=== PATIENT | male | born 1935 | race Caucasian/White ===

== ENCOUNTER 2018-03-16 17:03 | Inpatient (IN) ==
--- NOTE | 2018-03-16 17:24 | Emergency Department Note ---
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 Today he was feeling worse than usual and was having more difficulty ambulating. He is weak with ambulating as a baseline and often requires assistance and/or a walker device to get around secondary to his normal pressure hydrocephalus. He has not had any vomiting or diarrhea. He has had a good appetite and ate twice today already. He has had an occasional cough not real prominent and nonproductive. He has been seen to have some rhinorrhea. He is a compromised historian secondary to his dementia but does answer questions. He denies headache, chest pain, abdominal pain, dysuria. His family is not aware of him ever having a UTI. He did get a flu vaccination prior to this season. He does not smoke tobacco. He is accompanied by 3 other family members. They are not aware that he has been around anyone ill recently. Pt Subjective Complaint: fever, malaise, weakness Onset (ago): day(s) Maximum Temperature Reported: 100.9 F Temperature Source: oral - Related Data Home Medications Medication Instructions Recorded Confirmed Aspirin 81 mg PO DAILY 08/30/15 03/16/18 Latanoprost [Xalatan] 1 drop LEFT EYE HS 08/30/15 03/16/18 Donepezil HCl [Aricept] 10 mg PO DAILY 03/16/18 03/16/18 Memantine [Namenda] 10 mg PO BID 03/16/18 03/16/18 Allergies Allergy/AdvReac Type Severity Reaction Status Date / Time Penicillins Allergy Hives Verified 03/19/15 16:10 Constitutional: Reports: fever, chills Eyes: Denies: eye discharge ENT ED: Denies: throat pain Cardiovascular: Denies: chest pain Respiratory: Reports: cough, dyspnea. 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 Absent: conjunctival injection - ENT ENT exam: normal exam, normal oropharynx, mucous membranes moist - Neck Neck exam: Present: normal inspection - Chest Chest inspection: Present: symmetric chest wall rise - Respiratory Respiratory exam: Present: normal lung sounds bilaterally. Absent: respiratory distress, wheezes, stridor, accessory muscle use, prolonged expiratory phase - Cardiovascular Cardiovascular exam: Present: regular rate, normal rhythm, tachycardia - Abdominal Exam Abdominal exam: Present: soft, Non-Tender, normal bowel sounds. Absent: organomegaly - Extremities Exam Extremities exam: Present: normal inspection - Expanded Lower Extremity Exam Gait: other (Brought in by wheelchair he has difficulty walking when he is feeling well secondary to normal pressure hydrocephalus) - Back Exam Back exam: Present: normal inspection. Absent: CVA tenderness (R), CVA tenderness (L) - Neurological Exam Neurological exam: Present: alert, CN II-XII intact, other (He is weaker in the lower extremities than the upper he has strong grasp bilaterally he can barely lift either leg off the bed and has a tremor in both legs, right more than the left) - Psychiatric Psychiatric exam: Present: normal affect - Skin Skin exam: Present: warm, dry Course Course Narrative: He was hydrated with a liter of normal saline, he was given an antipyretic and antibiotics were initiated on repeat exam he appears comfortable and hemodynamically stable his heart rate came down to 95 bpm he was saturating 92% on room air Vital Signs Temperature 100.2 F H 01/30/19 17:13 Pulse Rate 121 03/16/18 17:13 Respiratory Rate 16 03/16/18 17:13 Blood Pressure 137/86 03/16/18 17:13 O2 Sat by Pulse Oximetry 90 03/16/18 17:13 Temperature 100.2 F H 03/16/18 17:13 Pulse Rate 121 03/16/18 17:13 Respiratory Rate 16 03/16/18 17:13 Blood Pressure 137/86 03/16/18 17:13 O2 Sat by Pulse Oximetry 90 03/16/18 17:13 Oxygen Delivery Oxygen Delivery Room Air Fever - MDM Narrative Medical decision making narrative: 82-year-old male with lingular pneumonia, borderline hypoxia, he is weak as a baseline and weaker with a fever and illness, it does not appear he is stable enough for the family to care for at home he would benefit from admission IV hydration and closer monitoring him at this point in time I do not believe he is septic or in septic shock - Differential Diagnosis Likely: community acquired pneumonia, pyelonephritis, influenza - Medical Records Medical records reviewed: Yes I reviewed the patient's medical records. - Lab Data Lab results reviewed: Yes I reviewed the patient's lab results. Lab results narrative: White blood cell count is normal, chemistry panel is unremarkable, liver panel unremarkable, lactic acid normal - Radiology Data Radiology results reviewed: Yes I reviewed the patient's radiology results. Density in the lingular area consistent with atelectasis versus pneumonia - EKG Data EKG attestation: Yes I reviewed and interpreted this EKG. EKG shows normal: sinus rhythm Rate: tachycardia Burke/QRS: normal Interpretation: nonspecific ST-T wave changes (Poor R-wave progression, consistent with anterior injury of indeterminate age, nursing change from previous study on 12/08/15) Critical Care Time Critical Care Time: No
[2018-03-16] MEDS ORDERED: 0.9 % Sodium Chloride 1,000 ML IVC ONE (17:33)
[2018-03-16] MEDS ORDERED: Acetaminophen 325 MG TABLET PO ONE (17:33)
[2018-03-16 17:52] LABS: Basophils % 0.5 %; Eosinophils # 0.1 K/mcL (0.0-0.6); Eosinophils % 0.8 %; Hemoglobin 16.6 g/dL (12.9-16.9); Immature Granulocytes % 0.3 % (0-4); Lymphocytes # 0.5 K/mcL (0.6-4.6); Lymphocytes % 7.1 %; Mean Corpuscular HGB Conc 34.6 g/dL (31.6-35.5); Mean Corpuscular Hemoglobin 30.3 pg (28.0-33.3); Mean Corpuscular Volume 87.8 fL (83.0-100.0); Mean Platelet Volume 8.4 fL (9.4-12.4); Monocytes # 0.5 K/mcL (0.0-1.3); Monocytes % 7.4 %; Neutrophils # 5.3 K/mcL (1.6-8.9); Platelet Count 154 K/mcL (140-400); Red Blood Count 5.47 M/mcL (4.19-5.50); Red Cell Distribution Width 12.7 % (11.5-14.5); Segmented Neutrophils % 83.9 %
[2018-03-16 18:00] LABS: INR 1.1; Prothrombin Time 12.8 Seconds (9.4-12.1)
[2018-03-16 18:03] LABS: Activated Partial Thrombo Time 33.3 Seconds (26.0-36.0)
[2018-03-16 18:11] LABS: Troponin I < 0.03 ng/mL (< 0.04)
[2018-03-16 18:12] LABS: Alanine Aminotransferase 23 Units/L (7-52); Albumin/Globulin Ratio 1.4 (1.1-2.2); Alkaline Phosphatase 86 Units/L (34-104); Aspartate Amino Transferase 17 Units/L (13-39); BUN/Creatinine Ratio 17 (6-26); Bilirubin,Direct 0.2 mg/dL (0.0-0.2); Bilirubin,Indirect 0.9 mg/dL (0.0-1.2); Bilirubin,Total 1.1 mg/dL (0.3-1.0); Blood Urea Nitrogen 17 mg/dL (8-23); Carbon Dioxide 24 mEq/L (23-29); Chloride 104 mEq/L (98-107); Globulin 2.9 g/dL (2.4-3.5); Glucose 116 mg/dL (70-105); Magnesium 1.9 mg/dL (1.6-2.6); Osmolality,Calculated 285 (280-300); Phosphorous 3.1 mg/dL (2.7-4.5); Potassium 3.9 mEq/L (3.5-5.1); Sodium 136 mEq/L (136-145); Total Protein 6.9 g/dL (6.4-8.9); eGFR For Non-African Americans > 60 (> 60)
[2018-03-16 18:12] LABS: ABG Base Excess 1 mEq/L (-2 to 3); ABG HCO3 24 mEq/L (21-27); ABG Oxygen Saturation 92 % (95-98); ABG PCO2 35 mmHg (35-45); ABG PH 7.45 pH Units (7.32-7.45); ABG PO2 61 mmHg (85-104); ABG TCO2 25 mEq/L (20-26)
[2018-03-16 18:40] LABS: Bilirubin,Urine Negative (Negative); Blood,Urine Negative (Negative); Clarity,Urine Clear (Clear); Color,Urine Yellow (Yellow); Glucose,Urine (UA) Normal (Normal); Ketones,Urine Trace mg/dL (Negative); Leukocyte Esterase,Urine Negative (Negative); Nitrite,Urine Negative (Negative); PH,Urine 7.5 pH Units (5.0-8.0); Protein,Urine Negative (Neg-Trace); Specific Gravity,Urine 1.015 (1.010-1.025); Urobilinogen,Urine Normal (Normal)
[2018-03-16] MEDS ORDERED: Levofloxacin 500 MG/100 ML 500 MG/100 ML BAG IVPB SCH (20:00)
[2018-03-16] MEDS ORDERED: 0.9 % Sodium Chloride 1,000 ML IVC SCH (20:00)
--- NOTE | 2018-03-16 22:42 | Internal Med History&Physical ---
Date of Encounter: 03/17/18 Time of Encounter: 22:38 Assessment and Plan (1) Lingular pneumonia Current visit: Yes Status: Acute Patient has a history of decline in his mental status, decrease in ADLs, inability to walk all happening suddenly today. Documented fever 101 at home. Chest x-ray consistent with left lingular pneumonia. Even though his lung findings on auscultation are clear, no leukocytosis he could indeed have pneumonia with other related symptoms. He has been cultured of blood, Levaquin has been started as well as IV fluids. His family thinks he looks better at this point. Will continue current treatment and follow-up x-ray will be done. (2) Unable to walk Current visit: Yes Status: Acute Today he is unable to walk. It took 3 people to get him in to the bathroom as well as get him to the car. 2 of us could not get him into standing position even bear weight. This is a very different change from his baseline of using a walker and his assisting standby. This may be related to his infection. Doubt that he has had a CVA. Doubt this related to a malfunctioning shunt such as sudden onset. He may need physical therapy. He may need neurology consultation. There is no way he can be handled at home. (3) Normal pressure hydrocephalus Current visit: Yes Status: Chronic Chronic no pressure hydrocephalus. The last couple of times his shunt has not needed adjustment. He does have cognitive changes, urinary incontinence, as well as gait abnormality from this. His specialist is in [place]. I do not think we need further intervention right now. (4) S/P DESIZING MACHINE BACK TENDER shunt Current visit: Yes Status: Chronic Chronic shunt for normal pressure hydrocephalus. I doubt that shunt is related to his son fever and inability to walk. It may need to be reevaluated though. (5) Physical deconditioning Current visit: Yes Status: Acute Generalized weakness related to the above. He cannot be managed at home even with 2 people. He might need physical therapy prior to going home. (6) DVT prophylaxis Current visit: Yes Status: Acute He has a risk for DVT because of his increased sedentary status. We will start [facility] Internal Medicine - H&P: HPI Chief complaint: Family reports he has had a cough and extreme weakness and fever today Admitted From: Emergency Dept Plans for Post Hospital Care: Home History of present illness: Mr. Borges is a 82 year old male with known history of normal pressure hydrocephalus, cognitive impairment, chronic gait abnormality was his usual stable self until this morning. His states "he seemed dull" this morning. He had increased trouble with walking, "like he forgot how to walk or even get up out of his recliner". He needed added assistance from his today. However starting at 2 PM he could not get up by himself. It took 3 people to get him to the bathroom. Extremities were shaky, not able to straighten his legs cannot bear weight on his legs. It took 3 people to get him into the car to come here. His found have a fever of 101 today he has had cold symptoms for the past few days which his thought was getting better until the day. Continues to have a cough and runny nose. Because of his NPH he does have difficulties with walking, but typically walks with a walker with minimal assistance but has difficulties with spatial relationships difficult to get in and out of a chair and make turned etc. However today he simply could not walk, could not get out of a chair and was very shaky and weak. When I spoke to them via phone with that history of fever and inability to walk and having a cough I recommended that he come to the emergency room. There his workup was fairly nonfocal except for possible lingular pneumonia on chest x-ray as read by radiology. His family thinks that he is perked up and has better color since he has had IV fluids. Past Med Surg Social Fam HX - Past Medical History Medical history: arthritis, dementia (Likely from NPH), glaucoma, hypertension (Not requiring medication any longer), thyroid disease, TIA Additional medical history: Normal pressure hydrocephalus and has a shunt Psychiatric history: no psych history - Past Surgical History Surgical History: tonsilectomy, other Additional surgical history: Cerebral Shunt - Social History Smoking Status: Never smoker Smokeless Tobacco Status: No Alcohol use: none Drug use: none Occupational status: retired (Previous [employer]) Current living situation: With Family Activity Level: Uses cane/walker Recent Out of Country Travel Within the Last 8 Weeks: No Exposure or Possible Exposure to Illness During Travel: No - Family History Father Living Status: Age at : 56 Cause of : Heart disease Mother Living Status: Still Living Hx Family Cardiac Disorders: Yes (Heart disease but still alive at 100) Internal Medicine - H&P: Meds Aspirin 81 mg PO HS 08/30/15 [History] Latanoprost [Xalatan] 1 drop LEFT EYE HS 08/30/15 [History] Donepezil HCl [Aricept] 10 mg PO HS 03/16/18 [History] Memantine [Namenda] 10 mg PO BID 03/16/18 [History] Allergy/AdvReac Type Severity Reaction Status Date / Time Penicillins Allergy Hives Verified 03/19/15 16:10 ROS unobtainable: due to mental status Review of systems: Review of systems is basically done by the and daughter as patient is not reliable for this - Constitutional Constitutional: fatigue, fever(s) (Fever 101 at home today), lethargy, weakness, no anorexia, no chills - EENT Eyes: no change in vision Nose, mouth and throat: no mouth pain, no sinus pain, no sore throat - Cardiovascular Cardiovascular ROS IM: no chest pain, no dyspnea, no dyspnea on exertion, no lightheadedness, no syncope - Respiratory Respiratory: cough (Patient has had a dry cough), chest congestion, no dyspnea, no hemoptysis, no wheezing - Gastrointestinal Gastrointestinal: no abdominal pain, no constipation, no diarrhea, no loose stools, no nausea, no vomiting - Genitourinary Genitourinary ROS male: urinary incontinence (Chronically has urinary incontinence, this is been a bit worse the past few days), no dysuria, no hematuria - Musculoskeletal Musculoskeletal ROS IM: muscle weakness (He is unable to bear weight or ambulate with his walker as he did previously ), no joint swelling, no neck pain - Integumentary Integumentary IM: no erythema, no rash - Neurological Neurological ROS: confusion (He seemed to have increasing confusion the past few days. In fact last night he was looking out the window and was waving at somebody, his found out that it was his own reflection.), weakness, other visual disturbances (Sometimes he has had some hallucinations seeing things that were not present) - Constitutional Vitals: Temp Pulse Resp BP Pulse Ox 99.4 F 102 17 131/69 96 03/16/18 21:16 03/16/18 21:16 03/16/18 21:16 03/16/18 21:16 01/30/19 21:16 General appearance: Present: no acute distress. Absent: A&O X 3, answers questions appropriately Exam: He knows my name. He could not tell me where we were. However he knew he had been here for only about 4 hours. - Head Head exam: Present: atraumatic (Right parietal shunt palpable) - Eye Eye exam: Present: EOMI - ENT ENT exam: Present: mucous membranes moist, normal oropharynx (Edentulous.), TM's normal bilaterally - Neck Neck exam general surgery: Present: full ROM. Absent: lymphadenopathy, tenderness, nuchal rigidity, thyromegaly - Respiratory Respiratory exam: Present: CTAB. Absent: respiratory distress - Cardiovascular Cardiovascular exam: Present: RRR, +S1, +S2 - GI/Abdominal GI/Abdominal exam: Present: soft, no peritoneal signs. Absent: guarding, mass, tenderness - Extremities Exam Extremities exam: Present: warm. Absent: calf tenderness, pedal edema, tenderness Additional comments: Both feet are warm, the right tends to be more red than the left. Dorsalis pedis pulses are good. - Neurological Exam Neurological exam: Present: alert. Absent: normal gait, oriented X3 Additional comments: Sometimes he has difficulties following command. In bed he was able to wiggle his toes and bend his knees. However he was unable to walk at home and in the ER. He is difficulties with multiple directions, asking him to sit up in bed was not understood by him and he was not sure what to do. To this try to get him into standing position from the bed, it was impossible for him to bear weight on his lower extremities, had severe shaking and he leaned to one side. We could not continue to stand to even pivot to get into a chair - Skin Skin exam: Absent: rash Internal Med - H&P Results - Labs CBC & Chem 7: 03/17/18 05:50 03/17/18 05:50 Labs: Short CBC 03/16/18 Range/Units 17:45 WBC 6.3 (4.3-11.1) K/mcL Hgb 16.6 (12.9-16.9) g/dL Hct 48.0 (37.5-50.1) % Plt Count 154 (140-400) K/mcL Neutrophils # 5.3 (1.6-8.9) K/mcL BMP 03/16/18 17:45 Sodium 136 Potassium 3.9 Chloride 104 Carbon Dioxide 24 BUN 17 Creatinine 1.03 Glucose 116 H Calcium 9.0 Cardiac Enzymes 03/16/18 Range/Units 17:45 Troponin I < 0.03 (< 0.04) ng/mL Liver Function 03/16/18 Range/Units 17:45 Total Bilirubin 1.1 H (0.3-1.0) mg/dL Direct Bilirubin 0.2 (0.0-0.2) mg/dL AST 17 (13-39) Units/L ALT 23 (7-52) Units/L Alkaline Phosphatase 86 (34-104) Units/L Albumin 4.0 (3.5-5.7) g/dL Urine 03/16/18 Range/Units 18:35 Urine Color Yellow (Yellow) Urine Clarity Clear (Clear) Urine pH 7.5 (5.0-8.0) pH Units Ur Specific [place] 1.015 (1.010-1.025) Urine Protein Negative (Neg-Trace) mg/dL Urine Glucose (UA) Normal (Normal) mg/dL Labs have been reviewed and fairly nonfocal. - ABG Interpretation ABG results: 03/16/18 17:53 ABG pH 7.45 ABG pCO2 35 ABG pO2 61 L ABG HCO3 24 ABG Total CO2 25 ABG O2 Saturation 92 L ABG Base Excess 1 - EKG Data Prior EKG available for review: no - Impressions ITS Impressions Chest X-Ray 03/16/18 17:51 IMPRESSION: Cardiomegaly is identified, with crowding of the interstitial markings related to low lung volumes. There does appear to be a lingular they infiltrate which could represent atelectasis or pneumonia. D/ / Todd Stringer MD / Todd Stringer MD Interpreting Provider: Todd Stringer MD - Diagnostic Studies Chest x-ray Additional comments: Chest x-ray was read by radiologist showing left lingular infiltrate consistent with pneumonia
[2018-03-16] MEDS: Aspirin 81 MG TAB.CHEW PO SCH (23:32)
[2018-03-16] MEDS: Latanoprost 2.5 ML BOTTLE LEFT EYE SCH (23:32)
[2018-03-17] MEDS: 0.9 % Sodium Chloride 1,000 ML IVC SCH ×4 (04:10→22:40)
[2018-03-17] MEDS: *HR* Enoxaparin 40 MG/0.4 ML SYRINGE SQ SCH (05:08)
[2018-03-17 06:36] LABS: BUN/Creatinine Ratio 14 (6-26); Basophils % 0.4 %; Blood Urea Nitrogen 12 mg/dL (8-23); Calcium 8.5 mg/dL (8.6-10.3); Carbon Dioxide 26 mEq/L (23-29); Chloride 106 mEq/L (98-107); Eosinophils % 0.4 %; Glucose 110 mg/dL (70-105); Hematocrit 44.6 % (37.5-50.1); Hemoglobin 15.2 g/dL (12.9-16.9); Immature Granulocytes % 0.2 % (0-4); Lymphocytes # 0.7 K/mcL (0.6-4.6); Lymphocytes % 14.6 %; Mean Corpuscular HGB Conc 34.1 g/dL (31.6-35.5); Mean Corpuscular Hemoglobin 30.5 pg (28.0-33.3); Mean Corpuscular Volume 89.6 fL (83.0-100.0); Mean Platelet Volume 8.7 fL (9.4-12.4); Monocytes # 0.6 K/mcL (0.0-1.3); Monocytes % 12.4 %; Neutrophils # 3.2 K/mcL (1.6-8.9); Osmolality,Calculated 284 (280-300); Platelet Count 130 K/mcL (140-400); Red Blood Count 4.98 M/mcL (4.19-5.50); Red Cell Distribution Width 12.8 % (11.5-14.5); Sodium 137 mEq/L (136-145); eGFR For Non-African Americans > 60 (> 60)
[2018-03-17] MEDS ORDERED: Aspirin 81 MG TAB.CHEW PO SCH (09:00)
--- NOTE | 2018-03-17 11:09 | Internal Med Progress Note ---
Date of Encounter: 03/18/18 Time of Encounter: 11:09 - Assessment and plan (1) Lingular pneumonia Current Visit: Yes Status: Acute Assessment and plan: Fever, cough and chest x-ray consistent with lingular pneumonia. He is on Le vaquin. Pulmonary-rincon she seems to be doing well good saturations and no respiratory distress. Continue the antibiotics. (2) Unable to walk Current Visit: Yes Status: Acute Assessment and plan: He cannot bear weight on lower extremities, even with 2 person assistance he cannot stand. This may be due to his infection or it may be due to NPH. He may need to be evaluated for adjustment of his shunt. (3) Normal pressure hydrocephalus Current Visit: Yes Status: Chronic Assessment and plan: Chronically has NPH and shunt. His neurosurgeon is Dr. Spencer in [place]. He may need to be reevaluated by him. (4) S/P FARM EQUIPMENT SERVICE TECHNICIAN shunt Current Visit: Yes Status: Chronic (5) Physical deconditioning Current Visit: Yes Status: Acute Assessment and plan: I like for him to be evaluated by PT and OT. The nursing staff cannot get him to the bedside chair. (6) DVT prophylaxis Current Visit: Yes Status: Acute - Subjective Interval history: Patient denies any acute complaints, but is not a good historian. Family and clinical staff states that he is not able to stand, still not acting at his usual baseline. He had low-grade fever through the night of 100.2 - Constitutional Vitals: Temp Pulse Resp BP Pulse Ox 100.2 F H 87 18 161/79 94 03/17/18 07:30 03/17/18 07:30 03/17/18 07:30 03/17/18 07:30 03/17/18 07:30 General appearance: Present: no acute distress. Absent: A&O X 3, answers questions appropriately Exam: Smiling and pleasant, not a good historian, difficult for him to follow directions. - Respiratory Respiratory exam: Present: CTAB. Absent: respiratory distress, wheezes - Cardiovascular Cardiovascular exam: Present: RRR, +S1, +S2 - GI/Abdominal GI/Abdominal exam: Present: soft. Absent: tenderness - Extremities Exam Extremities exam: Absent: calf tenderness, pedal edema, tenderness - Neurological Exam Neurological exam: Absent: oriented X3 Additional comments: He is not able to be stood upright and bear weight on lower extremities. It took 3 of us to get him sat down and back in the bed. His lower extremities were very shaky and weak. Internal Medicine: Result - Labs CBC & Chem 7: 03/17/18 05:50 03/17/18 05:50 Labs: Short CBC 03/16/18 03/17/18 Range/Units 17:45 05:50 WBC 6.3 4.5 (4.3-11.1) K/mcL Hgb 16.6 15.2 (12.9-16.9) g/dL Hct 48.0 44.6 (37.5-50.1) % Plt Count 154 130 L (140-400) K/mcL Neutrophils # 5.3 3.2 (1.6-8.9) K/mcL BMP 03/16/18 03/17/18 17:45 05:50 Sodium 136 137 Potassium 3.9 4.0 Chloride 104 106 Carbon Dioxide 24 26 BUN 17 12 Creatinine 1.03 0.88 Glucose 116 H 110 H Calcium 9.0 8.5 L Cardiac Enzymes 03/16/18 Range/Units 17:45 Troponin I < 0.03 (< 0.04) ng/mL Liver Function 03/16/18 Range/Units 17:45 Total Bilirubin 1.1 H (0.3-1.0) mg/dL Direct Bilirubin 0.2 (0.0-0.2) mg/dL AST 17 (13-39) Units/L ALT 23 (7-52) Units/L Alkaline Phosphatase 86 (34-104) Units/L Albumin 4.0 (3.5-5.7) g/dL Urine 03/16/18 Range/Units 18:35 Urine Color Yellow (Yellow) Urine Clarity Clear (Clear) Urine pH 7.5 (5.0-8.0) pH Units Ur Specific [place] 1.015 (1.010-1.025) Urine Protein Negative (Neg-Trace) mg/dL Urine Glucose (UA) Normal (Normal) mg/dL - ABG Interpretation ABG results: ABG ABG pH 7.45 pH Units (7.32-7.45) 03/16/18 17:53 ABG pCO2 35 mmHg (35-45) 03/16/18 17:53 ABG pO2 61 mmHg (85-104) L 03/16/18 17:53 ABG O2 Saturation 92 % (95-98) L 03/16/18 17:53 PT/INR, D-dimer PT 12.8 Seconds (9.4-12.1) H 03/16/18 17:45 - Impressions Impressions Chest X-Ray 03/16/18 17:51 IMPRESSION: Cardiomegaly is identified, with crowding of the interstitial markings related to low lung volumes. There does appear to be a lingular they infiltrate which could represent atelectasis or pneumonia. D/ / Todd Stringer MD / Todd Stringer MD Interpreting Provider: Todd Stringer MD Consult Discharge Plan - Plan Referrals: Norbert Najera MD [Primary Care Provider] -
[2018-03-17] MEDS: Aspirin 81 MG TAB.CHEW PO SCH (19:51)
[2018-03-17] MEDS: Levofloxacin 500 MG/100 ML 500 MG/100 ML BAG IVPB SCH (19:52)
[2018-03-17] MEDS: Latanoprost 2.5 ML BOTTLE LEFT EYE SCH (20:01)
[2018-03-18] MEDS: *HR* Enoxaparin 40 MG/0.4 ML SYRINGE SQ SCH (04:26)
[2018-03-18] MEDS: 0.9 % Sodium Chloride 1,000 ML IVC SCH ×3 (06:42→22:02)
--- NOTE | 2018-03-18 07:02 | Internal Med Progress Note ---
Date of Encounter: 03/18/18 Time of Encounter: 06:57 - Assessment and plan (1) Lingular pneumonia Current Visit: Yes Status: Acute Assessment and plan: History of fever, fever continues today to 101.2 range. His saturation was 89% when I evaluated him. His lung congestion is worse. X-ray does not look appreciably different, he may need CT scan. I doubt he has aspirated but certainly a consideration. Morning blood work is pending. I feel that he is not medically stable to go to home or a mcc currently. (2) Unable to walk Current Visit: Yes Status: Acute Assessment and plan: He will be evaluated by PT and OT. He is so uncoordinated and also fearful that the nursing staff cannot even get into a bedside commode. 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 (5) Physical deconditioning Current Visit: Yes Status: Acute (6) DVT prophylaxis Current Visit: Yes Status: Acute - Subjective Interval history: Patient denies any acute symptoms. However he is not a good historian. Nurses report that it takes 3 or 4 people to move in bed or try to get him back to bed after seated in a chair. He has occasional cough reported any sounds more congested today as per nursing staff. - Constitutional Vitals: Temp Pulse Resp BP Pulse Ox 101.2 F H 77 18 147/77 90 03/18/18 04:18 03/18/18 04:18 03/18/18 04:18 03/18/18 04:18 03/18/18 04:18 General appearance: Present: mild distress (Today he has some audible wheezes and crackles as heard at the bedside. Occasional cough.). Absent: A&O X 3, answers questions appropriately - Neck Neck exam general surgery: Present: full ROM. Absent: lymphadenopathy, tenderness, nuchal rigidity - Respiratory Additional comments: Patient has scattered crackles throughout all lung parker today. He has gurgling and crackles heard in his large airways and throat. This partially clears with cough. No respiratory distress. - Cardiovascular Cardiovascular exam: Present: RRR, +S1, +S2 - GI/Abdominal GI/Abdominal exam: Present: soft, no peritoneal signs. Absent: tenderness - Extremities Exam Extremities exam: Absent: calf tenderness, tenderness - Neurological Exam Additional comments: Patient is a poor historian but pleasant and smiling and cooperative. He is extremely shaky and uncoordinated when trying to sit up or to extremity testing while in bed. He cannot pull himself up in bed by himself. PT and OT to evaluate him today. It has become virtually impossible for prefer nursing staff to maneuver him in bed or at the bedside. Internal Medicine: Result - Labs CBC & Chem 7: 03/17/18 05:50 03/17/18 05:50 Labs: CBC and BMP are pending this morning. - ABG Interpretation ABG results: ABG ABG pH 7.45 pH Units (7.32-7.45) 03/16/18 17:53 ABG pCO2 35 mmHg (35-45) 03/16/18 17:53 ABG pO2 61 mmHg (85-104) L 03/16/18 17:53 ABG O2 Saturation 92 % (95-98) L 03/16/18 17:53 PT/INR, D-dimer PT 12.8 Seconds (9.4-12.1) H 03/16/18 17:45 - Diagnostic Studies Chest x-ray Status: image reviewed by me Additional comments: Portable chest x-ray was reviewed by me. It does not appear to be significantly different from baseline despite auscultation changes Consult Discharge Plan - Plan Referrals: Norbert Najera MD [Primary Care Provider] -
[2018-03-18 07:32] LABS: Basophils % 0.2 %; Hematocrit 44.9 % (37.5-50.1); Hemoglobin 15.5 g/dL (12.9-16.9); Immature Granulocytes % 0.4 % (0-4); Lymphocytes # 0.6 K/mcL (0.6-4.6); Lymphocytes % 10.9 %; Mean Corpuscular HGB Conc 34.5 g/dL (31.6-35.5); Mean Corpuscular Hemoglobin 30.4 pg (28.0-33.3); Mean Platelet Volume 8.2 fL (9.4-12.4); Monocytes # 0.4 K/mcL (0.0-1.3); Monocytes % 7.1 %; Neutrophils # 4.5 K/mcL (1.6-8.9); Platelet Count 112 K/mcL (140-400); Red Cell Distribution Width 12.6 % (11.5-14.5); Segmented Neutrophils % 81.4 %
[2018-03-18 07:55] LABS: BUN/Creatinine Ratio 13 (6-26); Blood Urea Nitrogen 9 mg/dL (8-23); Calcium 8.3 mg/dL (8.6-10.3); Carbon Dioxide 23 mEq/L (23-29); Chloride 104 mEq/L (98-107); Glucose 111 mg/dL (70-105); Osmolality,Calculated 279 (280-300); Potassium 3.6 mEq/L (3.5-5.1); Sodium 135 mEq/L (136-145); eGFR For Non-African Americans > 60 (> 60)
[2018-03-18] MEDS: Levofloxacin 500 MG/100 ML 500 MG/100 ML BAG IVPB SCH (19:45)
[2018-03-18] MEDS: Aspirin 81 MG TAB.CHEW PO SCH (19:46)
[2018-03-18] MEDS: Latanoprost 2.5 ML BOTTLE LEFT EYE SCH (19:46)
[2018-03-19] MEDS: *HR* Enoxaparin 40 MG/0.4 ML SYRINGE SQ SCH (04:49)
[2018-03-19] MEDS: 0.9 % Sodium Chloride 1,000 ML IVC SCH ×2 (05:10→14:05)
[2018-03-19 06:23] LABS: Basophils % 0.3 %; Eosinophils % 0.6 %; Hematocrit 44.9 % (37.5-50.1); Immature Granulocytes % 0.3 % (0-4); Lymphocytes # 0.7 K/mcL (0.6-4.6); Lymphocytes % 20.4 %; Mean Corpuscular HGB Conc 33.4 g/dL (31.6-35.5); Mean Corpuscular Hemoglobin 29.9 pg (28.0-33.3); Mean Corpuscular Volume 89.4 fL (83.0-100.0); Mean Platelet Volume 8.6 fL (9.4-12.4); Monocytes # 0.3 K/mcL (0.0-1.3); Monocytes % 7.9 %; Neutrophils # 2.3 K/mcL (1.6-8.9); Platelet Count 121 K/mcL (140-400); Red Blood Count 5.02 M/mcL (4.19-5.50); Red Cell Distribution Width 12.8 % (11.5-14.5); Segmented Neutrophils % 70.5 %
[2018-03-19 06:51] LABS: BUN/Creatinine Ratio 14 (6-26); Blood Urea Nitrogen 10 mg/dL (8-23); Calcium 8.3 mg/dL (8.6-10.3); Carbon Dioxide 26 mEq/L (23-29); Chloride 108 mEq/L (98-107); Glucose 99 mg/dL (70-105); Osmolality,Calculated 289 (280-300); Potassium 3.4 mEq/L (3.5-5.1); Sodium 140 mEq/L (136-145); eGFR For Non-African Americans > 60 (> 60)
--- NOTE | 2018-03-19 10:18 | Electrocardiograph Report ---
[address] [place], [place] [address] Test Date: 2018-03-16 Pat Name: Norebrt Borges Department: ED3 Room: 111 Gender: M [employer] Car Repairer: : 1935 Requested By: [id number] Order Number: [id number] Reading MD: Yazmin Villegas Measurements Intervals [place] Rate: 111 P: 41 OR: 158 QRS: 220 QRSD: 98 T: 3 QT: 333 QTc: 453 Interpretive Statements Sinus tachycardia Anterior infarct, old Electronically Signed On 03-19-2018 10:16:19 EST by Yazmin Villegas
--- NOTE | 2018-03-19 13:45 | Internal Med Progress Note ---
Date of Encounter: 03/19/18 Time of Encounter: 13:42 - Assessment and plan (1) Bilateral pneumonia Current Visit: Yes Status: Acute Assessment and plan: Today's pulmonary status is much improved from yesterday. His lungs are clear currently. No respiratory distress. He has been afebrile. Continue with current treatment plan. Still has weakness and increased confusion and poor appetite Qualifiers: Pneumonia type: due to unspecified organism Lung location: lower lobe of lung Qualified Code(s): J18.1 - Lobar pneumonia, unspecified organism (2) Lingular pneumonia Current Visit: Yes Status: Inactive (3) Unable to walk Current Visit: Yes Status: Acute Assessment and plan: He is showing improvement with physical therapy with standing and stamina. Still not able to walk with walker as he did at baseline before illness. (4) Normal pressure hydrocephalus Current Visit: Yes Status: Chronic Assessment and plan: He is showing improvement in his physical activity as infection is getting better. Not sure how much may be related to normal pressure hydrocephalus, shunt dysfunction considered as well. Would recommend appointment with Dr. Motta in [place] after discharge (5) S/P RAWHIDE BONE ROLLER shunt Current Visit: Yes Status: Chronic (6) Physical deconditioning Current Visit: Yes Status: Acute Assessment and plan: Much improved with physical therapy. Still not even near back to baseline. (7) DVT prophylaxis Current Visit: Yes Status: Acute (8) Elevated blood pressure reading Current Visit: Yes Status: Acute Assessment and plan: His blood pressures have been elevated recently. He is a past history of hypertension the past, but he was able to get off his medication because his pressures were going too low. We will restart medication, lisinopril hydrochlorothiazide and monitor. (9) Constipation Current Visit: Yes Status: Acute Assessment and plan: His bowels have not moved since admission a few days ago. Typically not needing anything at home. Will do rectal exam/rectal suppository, check for impaction. Qualifiers: Constipation type: unspecified constipation type Qualified Code(s): K59.00 - Constipation, unspecified - Subjective Interval history: I saw patient in physical therapy department getting ready to stand beside the parallel bars. He has no acute symptoms. He seemed social and in no distress. Therapists report that he was able to stand for 4 minutes holding onto the bar. He has difficulties with positioning of his feet and legs and following more than 1 step command. - Constitutional Vitals: Temp Pulse Resp BP Pulse Ox 98.9 F 70 19 163/71 91 03/19/18 07:40 03/19/18 07:40 03/19/18 04:47 03/19/18 07:40 03/19/18 07:40 General appearance: Present: no acute distress. Absent: A&O X 3, answers questions appropriately Exam: I saw him in the physical therapy department in 2 people got him to stand posi tion and he stood holding onto the bar for a few minutes. He slouched a couple of times but was able to be better than I had expected. - Respiratory Respiratory exam: Present: CTAB. Absent: respiratory distress - Cardiovascular Cardiovascular exam: Present: RRR, +S1, +S2 - Extremities Exam Extremities exam: Absent: calf tenderness, pedal edema, tenderness - Neurological Exam Additional comments: He seemed more alert. I did not do a full Mini-Mental status examination. 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 It took 2 people to stand him, but he was able to stand holding onto the bar was standby assistance. Internal Medicine: Result - Labs CBC & Chem 7: 03/19/18 05:40 03/19/18 05:40 Labs: Short CBC 03/19/18 Range/Units 05:40 WBC 3.3 L (4.3-11.1) K/mcL Hgb 15.0 (12.9-16.9) g/dL Hct 44.9 (37.5-50.1) % Plt Count 121 L (140-400) K/mcL Neutrophils # 2.3 (1.6-8.9) K/mcL BMP 03/19/18 05:40 Sodium 140 Potassium 3.4 L Chloride 108 H Carbon Dioxide 26 BUN 10 Creatinine 0.69 L Glucose 99 Calcium 8.3 L Mild hyponatremia. White blood cell count dipped slightly. - ABG Interpretation ABG results: ABG ABG pH 7.45 pH Units (7.32-7.45) 03/16/18 17:53 ABG pCO2 35 mmHg (35-45) 03/16/18 17:53 ABG pO2 61 mmHg (85-104) L 03/16/18 17:53 ABG O2 Saturation 92 % (95-98) L 03/16/18 17:53 PT/INR, D-dimer PT 12.8 Seconds (9.4-12.1) H 03/16/18 17:45 Consult Discharge Plan - Plan Referrals: Norbert Najera MD [Primary Care Provider] -
[2018-03-19] MEDS ORDERED: Bisacodyl 10 MG RECTAL SUPPOSITORY RC PRN (14:14)
[2018-03-19] MEDS: Aspirin 81 MG TAB.CHEW PO SCH (20:13)
[2018-03-19] MEDS: Levofloxacin 500 MG/100 ML 500 MG/100 ML BAG IVPB SCH (20:17)
[2018-03-19] MEDS: Latanoprost 2.5 ML BOTTLE LEFT EYE SCH (21:38)
[2018-03-20 05:08] LABS: Basophils % 0.3 %; Eosinophils % 0.3 %; Hematocrit 40.7 % (37.5-50.1); Hemoglobin 13.7 g/dL (12.9-16.9); Immature Granulocytes % 0.3 % (0-4); Lymphocytes # 0.6 K/mcL (0.6-4.6); Lymphocytes % 16.1 %; Mean Corpuscular HGB Conc 33.7 g/dL (31.6-35.5); Mean Corpuscular Hemoglobin 29.6 pg (28.0-33.3); Mean Corpuscular Volume 87.9 fL (83.0-100.0); Mean Platelet Volume 8.2 fL (9.4-12.4); Monocytes # 0.4 K/mcL (0.0-1.3); Monocytes % 10.7 %; Neutrophils # 2.7 K/mcL (1.6-8.9); Platelet Count 117 K/mcL (140-400); Red Blood Count 4.63 M/mcL (4.19-5.50); Red Cell Distribution Width 12.6 % (11.5-14.5); Segmented Neutrophils % 72.3 %
[2018-03-20 05:23] LABS: BUN/Creatinine Ratio 14 (6-26); Blood Urea Nitrogen 10 mg/dL (8-23); Calcium 8.2 mg/dL (8.6-10.3); Carbon Dioxide 26 mEq/L (23-29); Chloride 104 mEq/L (98-107); Glucose 115 mg/dL (70-105); Osmolality,Calculated 288 (280-300); Potassium 2.8 mEq/L (3.5-5.1); Sodium 139 mEq/L (136-145); eGFR For Non-African Americans > 60 (> 60)
[2018-03-20] MEDS: *HR* Enoxaparin 40 MG/0.4 ML SYRINGE SQ SCH (06:17)
--- NOTE | 2018-03-20 12:17 | Internal Med Progress Note ---
Date of Encounter: 03/20/18 Time of Encounter: 11:59 - Assessment and plan (1) Bilateral pneumonia Current Visit: Yes Status: Acute Assessment and plan: Continues with intravenous Levaquin for his bilateral pneumonia. Clinically and symptomatically he seems be doing better. His fever spikes a cough for 1012 down to 100 range now down to 99 max in the past 24 hours. His lungs are clear. Has occasional cough. He has never had leukocytosis. Hypoxemia improved. Continue current regimen. Qualifiers: Pneumonia type: due to unspecified organism Lung location: lower lobe of lung Qualified Code(s): J18.1 - Lobar pneumonia, unspecified organism (2) Unable to walk Current Visit: Yes Status: Acute Assessment and plan: Still has difficulties with ADLs. It took 3 people to get him from the bed to the bedside chair. He is requiring PT and OT. PT and OT continuation recommended prior to going home. We will also arrange for him to have his shunt evaluated by Dr. Motta. (3) Normal pressure hydrocephalus Current Visit: Yes Status: Chronic Assessment and plan: Needs his shunt evaluated by Dr. Motta, we will call for an appointment (4) S/P MEDICAL RECEPTIONIST shunt Current Visit: Yes Status: Chronic (5) Physical deconditioning Current Visit: Yes Status: Acute (6) DVT prophylaxis Current Visit: Yes Status: Acute Assessment and plan: His present count has dropped a bit. We will continue to monitor. (7) Elevated blood pressure reading Current Visit: Yes Status: Acute Assessment and plan: Blood pressure is now improved since starting lisinopril hydrochlorothiazide. (8) Constipation Current Visit: Yes Status: Acute Assessment and plan: It was reported that he had large bowel movement yesterday. Qualifiers: Constipation type: unspecified constipation type Qualified Code(s): K59.00 - Constipation, unspecified (9) Hypokalemia Current Visit: Yes Status: Acute Assessment and plan: He has evolved hypokalemia, likely from his prolonged IV saline use. His potassium was normal yesterday, 2.8 today. We will have potassium supplement intravenously and follow up potassium level. - Subjective Interval history: Patient thinks that he is feeling better but he is not a good historian. Nurses report that it took 3 of them to get him from the bed to stand pivot into the chair beside the bed. They report he is eating better. Maximum temperature the past 24 hours was 99 range. No significant new symptoms reported. Occasional cough. No sputum production but he tends to stifle his cough and avoid. - Constitutional Vitals: Temp Pulse Resp BP Pulse Ox 98.2 F 72 14 127/71 94 03/20/18 08:00 03/20/18 08:00 03/20/18 08:00 03/20/18 08:00 03/20/18 08:00 General appearance: Present: no acute distress. Absent: A&O X 3, answers questions appropriately - Respiratory Respiratory exam: Present: decreased breath sounds, CTAB. Absent: respiratory distress Additional comments: He has occasional wet loose cough. - Cardiovascular Cardiovascular exam: Present: distant heart sounds, RRR, +S1, +S2 - Extremities Exam Extremities exam: Absent: calf tenderness, pedal edema, tenderness Internal Medicine: Result - Labs CBC & Chem 7: 03/20/18 04:40 03/20/18 04:40 Labs: Short CBC 03/20/18 Range/Units 04:40 WBC 3.7 L (4.3-11.1) K/mcL Hgb 13.7 (12.9-16.9) g/dL Hct 40.7 (37.5-50.1) % Plt Count 117 L (140-400) K/mcL Neutrophils # 2.7 (1.6-8.9) K/mcL BMP 03/20/18 04:40 Sodium 139 Potassium 2.8 L Chloride 104 Carbon Dioxide 26 BUN 10 Creatinine 0.69 L Glucose 115 H Calcium 8.2 L Hypokalemia is noted today. Slight drop in platelets as well as WBC. - ABG Interpretation ABG results: ABG ABG pH 7.45 pH Units (7.32-7.45) 03/16/18 17:53 ABG pCO2 35 mmHg (35-45) 03/16/18 17:53 ABG pO2 61 mmHg (85-104) L 03/16/18 17:53 ABG O2 Saturation 92 % (95-98) L 03/16/18 17:53 PT/INR, D-dimer PT 12.8 Seconds (9.4-12.1) H 03/16/18 17:45 Consult Discharge Plan - Plan Referrals: Norbert Najera MD [Primary Care Provider] -
[2018-03-20] MEDS ORDERED: 0.9 % Sodium Chloride 250 ML ONE (14:27)
[2018-03-20] MEDS: Aspirin 81 MG TAB.CHEW PO SCH (19:25)
[2018-03-20] MEDS: Levofloxacin 500 MG/100 ML 500 MG/100 ML BAG IVPB SCH (19:26)
[2018-03-20] MEDS: Latanoprost 2.5 ML BOTTLE LEFT EYE SCH (20:39)
[2018-03-21] MEDS: *HR* Enoxaparin 40 MG/0.4 ML SYRINGE SQ SCH (04:55)
--- NOTE | 2018-03-21 07:09 | Internal Med Progress Note ---
Date of Encounter: 03/21/18 Time of Encounter: 07:03 - Assessment and plan (1) Bilateral pneumonia Current Visit: Yes Status: Acute Assessment and plan: Still receiving intravenous antibiotics for bilateral pneumonia. He has fin ished 5 days of Levaquin. Pulmonary status is now improved. We will check his oxygen level during physical therapy. Qualifiers: Pneumonia type: due to unspecified organism Lung location: lower lobe of lung Qualified Code(s): J18.1 - Lobar pneumonia, unspecified organism (2) Unable to walk Current Visit: Yes Status: Acute Assessment and plan: Still taking maximum assistance of multiple staff members to get him to the bedside chair. We will contact Dr. Spencer today for appointment to check his shunt (3) Normal pressure hydrocephalus Current Visit: Yes Status: Chronic Assessment and plan: We will try to arrange appointment with his neurosurgeon Dr. Spencer to check his shunt (4) S/P JOCKEY'S AGENT shunt Current Visit: Yes Status: Chronic (5) Physical deconditioning Current Visit: Yes Status: Acute Assessment and plan: Resume physical therapy today. (6) DVT prophylaxis Current Visit: Yes Status: Acute Assessment and plan: Continue DVT prophylaxis because he is bedridden most of the time. (7) Elevated blood pressure reading Current Visit: Yes Status: Acute Assessment and plan: His blood pressure is doing better, still has intermittent elevated pressure. (8) Constipation Current Visit: Yes Status: Acute Qualifiers: Constipation type: unspecified constipation type Qualified Code(s): K59.00 - Constipation, unspecified (9) Hypokalemia Current Visit: Yes Status: Acute Assessment and plan: Potassium is now up to 3.1. Will give oral supplement today. - Subjective Interval history: Patient has no acute complaints, but he is a poor historian. Nurses report that is very difficult to roll him to the left side as he resists that, but rolls better to the right. He still is maximum assist to move him to the bedside chair or do any changing of his Depends or chux. Patient has been eating well, needs assistance by family or staff though. - Constitutional Vitals: Temp Pulse Resp BP Pulse Ox 98.0 F 68 14 125/78 95 03/21/18 04:00 03/21/18 04:00 03/21/18 04:00 03/21/18 04:00 03/21/18 04:00 General appearance: Present: no acute distress. Absent: A&O X 3, answers questions appropriately - Respiratory Respiratory exam: Present: CTAB - Cardiovascular Cardiovascular exam: Present: RRR, +S1, +S2 - GI/Abdominal GI/Abdominal exam: Present: soft. Absent: tenderness - Extremities Exam Extremities exam: Absent: calf tenderness, pedal edema, tenderness - Neurological Exam Neurological exam: Present: alert Additional comments: He still has difficulties with following commands such as bending his knee to check muscle strength, when asking him to sit forward he tends to push backward. Nurses report he is still maximum assist in doing any type of care in bed, sitting up, getting to the bedside chair. Internal Medicine: Result - Labs CBC & Chem 7: 03/21/18 05:20 03/21/18 05:20 Labs: Short CBC 03/21/18 Range/Units 05:20 Plt Count 122 L (140-400) K/mcL BMP 03/21/18 05:20 Potassium 3.1 L Potassium is improved. Platelet count has gone up a bit. - ABG Interpretation ABG results: ABG ABG pH 7.45 pH Units (7.32-7.45) 03/16/18 17:53 ABG pCO2 35 mmHg (35-45) 03/16/18 17:53 ABG pO2 61 mmHg (85-104) L 03/16/18 17:53 ABG O2 Saturation 92 % (95-98) L 03/16/18 17:53 PT/INR, D-dimer PT 12.8 Seconds (9.4-12.1) H 03/16/18 17:45 Consult Discharge Plan - Plan Referrals: Norbert Najera MD [Primary Care Provider] -
[2018-03-21] MEDS: Levofloxacin 500 MG/100 ML 500 MG/100 ML BAG IVPB SCH (19:57)
[2018-03-21] MEDS: Aspirin 81 MG TAB.CHEW PO SCH (19:57)
[2018-03-21] MEDS: Latanoprost 2.5 ML BOTTLE LEFT EYE SCH (20:01)
[2018-03-22] MEDS: *HR* Enoxaparin 40 MG/0.4 ML SYRINGE SQ SCH (04:55)
--- NOTE | 2018-03-22 07:06 | Internal Med Progress Note ---
Date of Encounter: 03/22/18 Time of Encounter: 07:02 - Assessment and plan (1) Bilateral pneumonia Current Visit: Yes Status: Acute Assessment and plan: Clinically and symptomatically his pneumonia appears to be clearing. Today he will have his seventh day of IV antibiotics Qualifiers: Pneumonia type: due to unspecified organism Lung location: lower lobe of lung Qualified Code(s): J18.1 - Lobar pneumonia, unspecified organism (2) Unable to walk Current Visit: Yes Status: Acute Assessment and plan: He was able to walk with assistance for physical therapy yesterday. This is a big improvement. He continues on this pathway he may be able to be handled at home rather than going to a half-way. (3) Normal pressure hydrocephalus Current Visit: Yes Status: Chronic Assessment and plan: We are still awaiting a phone call back from Dr. Spencer's office regarding an appointment for follow-up regarding his shunt (4) S/P COMBINATION WORKER shunt Current Visit: Yes Status: Chronic (5) Physical deconditioning Current Visit: Yes Status: Acute Assessment and plan: Showing improvement, continue with PT and OT. (6) DVT prophylaxis Current Visit: Yes Status: Acute (7) Elevated blood pressure reading Current Visit: Yes Status: Acute Assessment and plan: blood pressure is now improved with lisinopril hydrochlorothiazide (8) Constipation Current Visit: Yes Status: Resolved Qualifiers: Constipation type: unspecified constipation type Qualified Code(s): K59.00 - Constipation, unspecified (9) Hypokalemia Current Visit: Yes Status: Acute Assessment and plan: Potassium is improving. Continue with the supplement. - Subjective Interval history: Patient denies any new symptoms. Unfortunately, he is a poor historian though. Nurses report that he has gotten stronger, he is better able to assist in his care in bed and transfers. He has advanced with therapy and was able to ambulate in the hallway yesterday, still with assistance though. He appears to be eating better. Bowels have moved. - Constitutional Vitals: Temp Pulse Resp BP Pulse Ox 97.5 F L 70 14 147/76 95 03/22/18 04:00 03/22/18 04:00 03/22/18 04:00 03/22/18 04:00 03/22/18 04:00 General appearance: Present: no acute distress. Absent: A&O X 3, answers questions appropriately - Respiratory Respiratory exam: Present: CTAB - Cardiovascular Cardiovascular exam: Present: RRR, +S1, +S2 - GI/Abdominal GI/Abdominal exam: Present: soft. Absent: tenderness - Extremities Exam Extremities exam: Absent: calf tenderness, pedal edema, tenderness - Neurological Exam Additional comments: Still does not follow commands well. He did not understand what I meant by sitting up forward in bed so I can listen to his lungs. He was trying to do the opposite and thrust himself backwards. Internal Medicine: Result - Labs CBC & Chem 7: 03/21/18 05:20 03/21/18 05:20 Labs: Platelet count has stabilized. Potassium is still low but improving. - ABG Interpretation ABG results: ABG ABG pH 7.45 pH Units (7.32-7.45) 03/16/18 17:53 ABG pCO2 35 mmHg (35-45) 03/16/18 17:53 ABG pO2 61 mmHg (85-104) L 03/16/18 17:53 ABG O2 Saturation 92 % (95-98) L 03/16/18 17:53 PT/INR, D-dimer PT 12.8 Seconds (9.4-12.1) H 03/16/18 17:45 Consult Discharge Plan - Plan Referrals: Norbert Najera MD [Primary Care Provider] -
[2018-03-22 11:43] VITALS: BP 111/73
--- NOTE | 2018-03-22 12:30 | Discharge Summary ---
- NOTES TO OUTPATIENT PROVIDER Notes to Outpatient Provider: He was discharged to home in the care of his . He will have home health physical therapy and an aide. Date of Encounter: 03/23/18 Time of Encounter: 12:29 - Discharge Diagnosis (1) Bilateral pneumonia Priority: Primary Status: Acute Comments: Patient was admitted with what appeared to be left-sided pneumonia. CT scan revealed bilateral pneumonia. He was placed on Levaquin and did well. He finished 7 days. Pulmonary status improved. At one time he became hypoxic and 89 range. However his white blood cell count remained normal. Palmar status improved. His functionality improved and was able to be discharged to home. Qualifiers: Pneumonia type: due to unspecified organism Lung location: lower lobe of lung Qualified Code(s): J18.1 - Lobar pneumonia, unspecified organism (2) Unable to walk Priority: Secondary Status: Resolved Comments: When he was admitted he was unable to walk. 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 However this was a significant change for him. His pulmonary status improved he was started on physical therapy and he made miraculous recovery. By time of discharge she is able to ambulate with a walker and minimal assistance with his . She thought she could handle him at home now and he was discharged to home with home health and PT follow-up. He is to have his shunt evaluated by Dr. 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 He was profoundly affected when he was first admitted with exacerbation due to his pneumonia. However with physical therapy he showed definite improvement. He has appointment with the neurosurgeon in [facility] in [place] to evaluate his shunt. 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 Borges is a 82 year old male with history of normal pressure hydrocephalus was admitted with bilateral basal her pneumonia and significant deconditioning and inability to walk. Please see the diagnoses above. Her treatment for pneumonia and having physical therapy he was strong enough to be in the 24-hour care of his . He will have home health physical therapy and follow-up to be arranged. Discharge discussed with: patient, family - Time Spent with Patient Total time spent providing and/or coordinating discharge services: - Discharge Medications Prescriptions: RX: Lisinopril-HCTZ 10-12.5 [Prinzide 10-12.5] 1 each PO DAILY #30 tablet RX: Potassium Chloride 20 meq PO DAILY #30 tab.er.prt Home Medications: RX: Aspirin 81 mg PO HS 08/30/15 [History] RX: Latanoprost [Xalatan] 1 drop LEFT EYE HS 08/30/15 [History] RX: Donepezil HCl [Aricept] 10 mg PO HS 03/16/18 [History] RX: Memantine [Namenda] 10 mg PO BID 03/16/18 [History] RX: Lisinopril-HCTZ 10-12.5 [Prinzide 10-12.5] 1 each PO DAILY #30 tablet 03/22/18 [Rx] RX: Potassium Chloride 20 meq PO DAILY #30 tab.er.prt 03/22/18 [Rx] Allergies/Adverse Reactions: Allergy/AdvReac Type Severity Reaction Status Date / Time Penicillins Allergy Hives Verified 03/19/15 16:10 Date of admission: 03/20/18 13:59 Primary care physician: Norbert Najera MD Consults: 03/17/18 17:00 Consult to Occupational Therapy [CONS] Routine Comment: Evaluate, develop and implement POC Reason for Consult: evaluation Does patient have active BEDREST order?: No Is patient medically & hemodynamically stable?: Yes Patient assessed for mobility or mobilized this visit?: No Consult to Physical Therapy [CONS] Routine Comment: Evaluate, develop and implement POC Reason for Consult: evaulation Does patient have active BEDREST order?: No Is patient medically & hemodynamically stable?: Yes Patient assessed for mobility or mobilized this visit?: No Discharging clinician: Norbert Najera Anticipated date of discharge: 03/22/18 - Constitutional Vitals: Temp Pulse Resp BP Pulse Ox 97.6 F 90 16 111/73 91 03/22/18 07:09 03/22/18 11:38 03/22/18 11:38 03/22/18 11:38 03/22/18 11:38 General appearance: Present: no acute distress. Absent: A&O X 3, answers questions appropriately - Respiratory Respiratory exam: Present: decreased breath sounds - Cardiovascular Cardiovascular exam: Present: RRR, +S2 - GI/Abdominal GI/Abdominal exam: Present: soft. Absent: tenderness - Extremities Exam Extremities exam: Absent: calf tenderness, tenderness - Neurological Exam Additional comments: Patient easily confused, cognitive deficit but improved. Difficulties following more than 1 simple command at a time. - Patient Status Disposition: Home Health Service Condition: Good Functional capacity at discharge: uses cane/walker Overall status at discharge: patient is progressing back to baseline - Discharge Instructions Follow Up With: Norbert Najera MD [Primary Care Provider] -
--- NOTE | 2018-03-22 12:56 | Physician Discharge Referral ---
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 For more information, call the [email or web address] Quit Line at [phone]-NOW. - Diet/Nutrition Diet/Nutrition Orders: Regular - Activity Activity Orders: Walker - Services Needed Following services are medically necessary services: Nursing, Home Health Aide, Physical Therapy - Transfer Medications Prescriptions: Lisinopril-HCTZ 10-12.5 [Prinzide 10-12.5] 1 each PO DAILY #30 tablet Potassium Chloride 20 meq PO DAILY #30 tab.er.prt Home Medications: Aspirin 81 mg PO HS 08/30/15 [History] Latanoprost [Xalatan] 1 drop LEFT EYE HS 08/30/15 [History] Donepezil HCl [Aricept] 10 mg PO HS 03/16/18 [History] Memantine [Namenda] 10 mg PO BID 03/16/18 [History] Lisinopril-HCTZ 10-12.5 [Prinzide 10-12.5] 1 each PO DAILY #30 tablet 03/22/18 [Rx] Potassium Chloride 20 meq PO DAILY #30 tab.er.prt 03/22/18 [Rx] Allergies/Adverse Reactions: Allergy/AdvReac Type Severity Reaction Status Date / Time Penicillins Allergy Hives Verified 03/19/15 16:10 Certification: Further, I certify that my clinical findings support that this patient is homebound (i.e. absences from home require considerable and taxing effort and are for medical reasons or restorationism services or infrequently or short duration when for other reasons) because: Homebound Reason: Patient requires assistance of a person or device to safely leave home, Absences from home are contraindicated except to recieve medical care Attestation: My signature below is to certify that this patient is under my care and that I, or nurse practitioner, or a physician's office clerk assistant working with me, has a [id number] encounter with this patient.
== END 2018-03-22 15:49 | disposition home health service (06) | DRG 194 ==
LOC: INPGRE 17:03 → EMEROOGRE 17:03 → INPGRE 20:21
PROVIDERS: ADMIT Family Medicine; ATTEND Family Medicine